=== PATIENT | male | born 1975 | race Caucasian/White ===

== ENCOUNTER 2018-05-22 13:53 | Inpatient (IN) | payer MEDICAID, OTHER ==
[2018-05-22 17:18] LABS: ADD MAN DIFF? NO
[2018-05-22 17:20] LABS: BASOPHILS % 0.3 % (0.0-2.0); EOSINOPHILS # 0.1 10^3/ul (0.0-0.5); EOSINOPHILS % 0.9 % (0.0-7.0); HEMATOCRIT 33.7 % (42.0-52.0); HEMOGLOBIN 11.1 g/dl (14.0-18.0); LYMPHOCYTES # 1.9 10^3/ul (0.8-2.9); LYMPHOCYTES % 14.8 % (15.0-51.0); MEAN CORPUSCULAR HEMOGLOBIN 29.7 pg (29.0-33.0); MEAN CORPUSCULAR HGB CONC 32.9 g/dl (32.0-37.0); MEAN CORPUSCULAR VOLUME 90.1 fl (82.0-101.0); MEAN PLATELET VOLUME 9.8 fl (7.4-10.4); MONOCYTE # 1.4 10^3/ul (0.3-0.9); MONOCYTES % 10.6 % (0.0-11.0); NEUTROPHIL # 9.3 10^3/ul (1.6-7.5); NEUTROPHILS % 72.9 % (39.0-77.0); PLATELET COUNT 324 10^3/UL (140-415); RED BLOOD COUNT 3.74 10^6/ul (4.70-6.10); RED CELL DISTRIBUTION WIDTH 11.8 % (11.5-14.5)
[2018-05-22 17:20] LABS: WHITE BLOOD COUNT 12.8 10^3/ul (4.8-10.8)
[2018-05-22] MEDS: ACETAMINOPHEN 325 MG TAB PO (17:23)
[2018-05-22] MEDS: ONDANSETRON 4 MG INJ IV (17:23)
[2018-05-22] MEDS: morphine 4 MG/ML VIAL IV (17:24)
[2018-05-22 17:32] LABS: ADD UMIC YES; UR ASCORBIC ACID NEGATIVE (NEGATIVE); UR BACTERIA FEW /HPF (NONE SEEN); UR BILIRUBIN (Dip) NEGATIVE (NEGATIVE); UR BLOOD (Dip) 1+ mg/dL (NEGATIVE); UR CLARITY SLIGHTLY CLOUDY (CLEAR); UR COLOR YELLOW (YELLOW); UR GLUCOSE (Dip) NEGATIVE (NEGATIVE); UR KETONES (Dip) TRACE mg/dL (NEGATIVE); UR LEUKOCYTE ESTERASE (Dip) NEGATIVE Leu/ul (NEGATIVE); UR MUCUS FEW /HPF (NONE SEEN); UR NITRITE (Dip) NEGATIVE (NEGATIVE); UR RBC 3 /HPF (0-5); UR SPECIFIC GRAVITY (Dip) 1.024 (1.003-1.030); UR TOTAL PROTEIN (Dip) 3+ mg/dl (NEGATIVE); UR UROBILINOGEN (Dip) NEGATIVE (NEGATIVE); UR WBC 17 /HPF (0-5)
[2018-05-22] MEDS: PIPER-TAZO 3.375 GM IV (PMX) 100 ML IVPB (17:37)
[2018-05-22] MEDS: SODIUM CHLORIDE 0.9% 1L BAG IV* (17:38)
[2018-05-22 17:40] LABS: INR 1.06; PROTIME 13.9 Sec (11.9-14.9); PT RATIO 1.1
[2018-05-22 17:41] LABS: PARTIAL THROMBOPLASTIN TIME 34.7 Sec (23.0-35.0)
[2018-05-22 17:43] LABS: ANION GAP 9 (5-13); BLOOD UREA NITROGEN 34 mg/dl (7-20); CALCIUM 9.5 mg/dl (8.4-10.2); CARBON DIOXIDE 27 mmol/L (21-31); CHLORIDE 101 mmol/L (97-110); CREATININE 1.49 mg/dl (0.61-1.24); Estimated GFR 51 mL/min (>60); GLUCOSE 149 mg/dl (70-220); POTASSIUM 4.9 mmol/L (3.5-5.1); SODIUM 137 mmol/L (135-144)
[2018-05-22 17:54] LABS: TROPONIN-I < 0.012 ng/ml (0.000-0.120)
[2018-05-22] MEDS: VANCOMYCIN 1 GM (PMX) 250 ML IVPB (18:14)
[2018-05-22] MEDS ORDERED: ONDANSETRON 4 MG INJ IV (19:00)
[2018-05-22] MEDS ORDERED: MAGNESIUM HYDROXIDE 30ML CUP PO (19:00)
[2018-05-22] MEDS ORDERED: NACL 0.9% 3 ML SYG IV (19:00)
[2018-05-22] MEDS ORDERED: VANCOMYCIN IV PER PHARMACY XX (19:00)
[2018-05-22] MEDS ORDERED: LORAZEPAM 2 MG INJ IV (19:00)
[2018-05-22] MEDS ORDERED: NA PHOSPHATE/BIPHOS 133 ML ENEMA PR (19:00)
[2018-05-22] MEDS ORDERED: DOCUSATE SODIUM 100 MG CAP PO (19:00)
[2018-05-22] MEDS ORDERED: NITROGLYCERIN (SL) 0.4 MG TAB SL (19:00)
[2018-05-22] MEDS ORDERED: ACETAMINOPHEN 325 MG TAB PO (19:00)
[2018-05-22 19:18] LABS: ETHANOL < 10.0 mg/dl
[2018-05-22 19:43] LABS: FREE T4 (FREE THYROXINE) 1.06 ng/dl (0.64-1.79)
[2018-05-22] MEDS ORDERED: DEXTROSE 50% 50 ML SYRINGE IV ×2 (20:30)
[2018-05-22] MEDS ORDERED: GLUCOSE GEL 15 GRAM TUBE BUCCAL (20:30)
[2018-05-22] MEDS ORDERED: GLUCOSE GEL 15 GRAM TUBE PO ×2 (20:30)
[2018-05-22] MEDS ORDERED: GLUCAGON 1 MG INJ IM (20:30)
[2018-05-22] MEDS ORDERED: INSULIN ASPART [NOVOLOG] 3 ML PEN SC (21:00)
[2018-05-22] MEDS: SOD CHLORIDE 0.9% 1,000 ML IV (21:27)
[2018-05-22] MEDS ORDERED: HEPARIN 5,000 UNIT/0.5 ML VIAL (21:52)
[2018-05-22] MEDS: HEPARIN 5,000 UNIT/1 ML VIAL SC (22:19)
[2018-05-22 23:49] LABS: LACTIC ACID 1.2 mmol/L (0.5-2.0)
[2018-05-22 23:53] LABS: INR 1.18; PROTIME 15.2 Sec (11.9-14.9); PT RATIO 1.2
[2018-05-22 23:54] LABS: PARTIAL THROMBOPLASTIN TIME 39.9 Sec (23.0-35.0)
[2018-05-23] MEDS: PIPER-TAZO 3.375 GM IV (PMX) 100 ML IVPB ×4 (00:03→17:02)
[2018-05-23 01:15] LABS: ADD UMIC YES; UR AMORPHOUS CRYSTAL FEW /HPF (NONE SEEN); UR ASCORBIC ACID NEGATIVE (NEGATIVE); UR BACTERIA FEW /HPF (NONE SEEN); UR BILIRUBIN (Dip) NEGATIVE (NEGATIVE); UR BLOOD (Dip) NEGATIVE (NEGATIVE); UR CLARITY SLIGHTLY CLOUDY (CLEAR); UR COLOR YELLOW (YELLOW); UR GLUCOSE (Dip) NEGATIVE (NEGATIVE); UR KETONES (Dip) NEGATIVE (NEGATIVE); UR LEUKOCYTE ESTERASE (Dip) NEGATIVE Leu/ul (NEGATIVE); UR NITRITE (Dip) NEGATIVE (NEGATIVE); UR RBC 1 /HPF (0-5); UR SPECIFIC GRAVITY (Dip) 1.015 (1.003-1.030); UR TOTAL PROTEIN (Dip) 2+ mg/dl (NEGATIVE); UR UROBILINOGEN (Dip) NEGATIVE (NEGATIVE); UR WBC 11 /HPF (0-5)
[2018-05-23 03:07] LABS: LACTIC ACID 0.8 mmol/L (0.5-2.0)
[2018-05-23] MEDS: PANTOPRAZOLE (EC) 40 MG TAB PO (05:27)
[2018-05-23] MEDS: morphine 2 MG INJ IV ×4 (05:27→20:59)
[2018-05-23] MEDS: VANCOMYCIN 1 GM 250 ML IVPB ×2 (06:21→17:41)
[2018-05-23 06:58] LABS: ADD MAN DIFF? NO
[2018-05-23] MEDS ORDERED: PENDING SANTYL ORDER FOR WOUND CARE XX (07:00)
[2018-05-23 07:03] LABS: BASOPHILS % 0.3 % (0.0-2.0); EOSINOPHILS # 0.2 10^3/ul (0.0-0.5); EOSINOPHILS % 1.8 % (0.0-7.0); HEMATOCRIT 28.4 % (42.0-52.0); HEMOGLOBIN 9.1 g/dl (14.0-18.0); LYMPHOCYTES # 1.8 10^3/ul (0.8-2.9); LYMPHOCYTES % 19.4 % (15.0-51.0); MEAN CORPUSCULAR HEMOGLOBIN 29.4 pg (29.0-33.0); MEAN CORPUSCULAR VOLUME 91.9 fl (82.0-101.0); MEAN PLATELET VOLUME 9.5 fl (7.4-10.4); MONOCYTES % 11.5 % (0.0-11.0); NEUTROPHILS % 66.4 % (39.0-77.0); PLATELET COUNT 258 10^3/UL (140-415); RED BLOOD COUNT 3.09 10^6/ul (4.70-6.10); RED CELL DISTRIBUTION WIDTH 11.9 % (11.5-14.5)
[2018-05-23 07:22] LABS: HEMOGLOBIN A1C 7.1 % (0-5.9)
[2018-05-23 07:27] LABS: ANION GAP 7 (5-13); BLOOD UREA NITROGEN 28 mg/dl (7-20); CALCIUM 8.3 mg/dl (8.4-10.2); CARBON DIOXIDE 27 mmol/L (21-31); CHLORIDE 106 mmol/L (97-110); CREATININE 1.22 mg/dl (0.61-1.24); Estimated GFR > 60 mL/min (>60); GLUCOSE 192 mg/dl (70-220); MAGNESIUM 1.7 mg/dl (1.7-2.5); PHOSPHORUS 4.4 mg/dl (2.5-4.9); POTASSIUM 4.8 mmol/L (3.5-5.1); SODIUM 140 mmol/L (135-144)
[2018-05-23 07:28] LABS: CHOL/HDL RATIO 4.3 RATIO; HDL CHOLESTEROL 30 mg/dl (27-67); LDL CHOLESTEROL,CALCULATED 71 mg/dl; TRIGLYCERIDES 138 mg/dl (0-149)
[2018-05-23 07:28] LABS: CHOLESTEROL 129 mg/dl (100-200)
[2018-05-23] MEDS: SOD CHLORIDE 0.9% 1,000 ML IV ×2 (07:38→10:57)
[2018-05-23 07:45] LABS: LACTIC ACID 0.9 mmol/L (0.5-2.0)
[2018-05-23] MEDS ORDERED: HEPARIN 5,000 UNIT/0.5 ML VIAL ×2 (07:57→20:06)
[2018-05-23] MEDS: INSULIN ASPART [NOVOLOG] 3 ML PEN SC ×4 (08:04→21:00)
[2018-05-23] MEDS: HEPARIN 5,000 UNIT/1 ML VIAL SC ×2 (08:05→21:01)
[2018-05-23 11:29] LABS: LACTIC ACID 0.8 mmol/L (0.5-2.0)
[2018-05-23] MEDS: SODIUM HYPOCHLORITE (1/40) 1 APPLIC BTL IRR (12:13)
[2018-05-23 14:49] LABS: LACTIC ACID 0.8 mmol/L (0.5-2.0)
[2018-05-23] MEDS: ACETAMINOPHEN 325 MG TAB PO (17:12)
[2018-05-24] MEDS: SOD CHLORIDE 0.9% 1,000 ML IV ×3 (01:09→14:46)
[2018-05-24] MEDS: morphine 2 MG INJ IV ×2 (02:16→05:31)
[2018-05-24] MEDS: ACETAMINOPHEN 325 MG TAB PO ×3 (03:25→20:54)
[2018-05-24 05:08] LABS: ADD MAN DIFF? NO
[2018-05-24 05:24] LABS: BASOPHILS % 0.3 % (0.0-2.0); EOSINOPHILS # 0.2 10^3/ul (0.0-0.5); EOSINOPHILS % 2.1 % (0.0-7.0); HEMATOCRIT 28.1 % (42.0-52.0); LYMPHOCYTES # 1.9 10^3/ul (0.8-2.9); LYMPHOCYTES % 21.4 % (15.0-51.0); MEAN CORPUSCULAR HEMOGLOBIN 29.2 pg (29.0-33.0); MEAN CORPUSCULAR VOLUME 91.2 fl (82.0-101.0); MEAN PLATELET VOLUME 9.7 fl (7.4-10.4); MONOCYTES % 11.2 % (0.0-11.0); NEUTROPHIL # 5.8 10^3/ul (1.6-7.5); NEUTROPHILS % 64.3 % (39.0-77.0); PLATELET COUNT 272 10^3/UL (140-415); RED BLOOD COUNT 3.08 10^6/ul (4.70-6.10); RED CELL DISTRIBUTION WIDTH 11.8 % (11.5-14.5)
[2018-05-24 05:24] LABS: WHITE BLOOD COUNT 9.1 10^3/ul (4.8-10.8)
[2018-05-24] MEDS: PANTOPRAZOLE (EC) 40 MG TAB PO (05:26)
[2018-05-24] MEDS: PIPER-TAZO 3.375 GM IV (PMX) 100 ML IVPB ×4 (05:26→17:23)
[2018-05-24 06:23] LABS: ANION GAP 9 (5-13); BLOOD UREA NITROGEN 18 mg/dl (7-20); CALCIUM 8.2 mg/dl (8.4-10.2); CARBON DIOXIDE 27 mmol/L (21-31); CHLORIDE 107 mmol/L (97-110); CREATININE 0.88 mg/dl (0.61-1.24); Estimated GFR > 60 mL/min (>60); GLUCOSE 149 mg/dl (70-220); POTASSIUM 4.8 mmol/L (3.5-5.1); SODIUM 143 mmol/L (135-144)
[2018-05-24 06:31] LABS: VANCOMYCIN,TROUGH 8.7 ug/ml (10.0-20.0)
[2018-05-24] MEDS: VANCOMYCIN 1 GM 250 ML IVPB (06:50)
[2018-05-24] MEDS ORDERED: HEPARIN 5,000 UNIT/0.5 ML VIAL ×2 (07:26→20:10)
[2018-05-24] MEDS: INSULIN ASPART [NOVOLOG] 3 ML PEN SC ×4 (07:59→21:00)
[2018-05-24] MEDS: HEPARIN 5,000 UNIT/1 ML VIAL SC ×2 (08:08→20:49)
[2018-05-24] MEDS: SODIUM HYPOCHLORITE (1/40) 1 APPLIC BTL IRR (08:09)
[2018-05-24] MEDS ORDERED: SODIUM HYPOCHLORITE (1/40) 1 APPLIC BTL IRR (09:00)
[2018-05-24] MEDS: VANCOMYCIN 1.5 GM in SOD CHLORIDE 0.9% 250 ML IVPB (18:05)
[2018-05-24] MEDS: INSULIN GLARGINE [LANTus] (100 UNITS/ML) SYG SC (20:48)
[2018-05-25] MEDS: PIPER-TAZO 3.375 GM IV (PMX) 100 ML IVPB ×4 (00:15→17:19)
[2018-05-25] MEDS: ONDANSETRON 4 MG INJ IV (00:22)
[2018-05-25 05:31] LABS: ADD MAN DIFF? NO
[2018-05-25 05:46] LABS: BASOPHILS % 0.5 % (0.0-2.0); EOSINOPHILS # 0.2 10^3/ul (0.0-0.5); HEMATOCRIT 27.7 % (42.0-52.0); HEMOGLOBIN 9.1 g/dl (14.0-18.0); LYMPHOCYTES # 1.9 10^3/ul (0.8-2.9); LYMPHOCYTES % 21.1 % (15.0-51.0); MEAN CORPUSCULAR HEMOGLOBIN 29.4 pg (29.0-33.0); MEAN CORPUSCULAR HGB CONC 32.9 g/dl (32.0-37.0); MEAN CORPUSCULAR VOLUME 89.6 fl (82.0-101.0); MEAN PLATELET VOLUME 9.7 fl (7.4-10.4); MONOCYTE # 0.9 10^3/ul (0.3-0.9); MONOCYTES % 10.4 % (0.0-11.0); NEUTROPHIL # 5.8 10^3/ul (1.6-7.5); NEUTROPHILS % 65.4 % (39.0-77.0); PLATELET COUNT 294 10^3/UL (140-415); RED BLOOD COUNT 3.09 10^6/ul (4.70-6.10); RED CELL DISTRIBUTION WIDTH 11.6 % (11.5-14.5)
[2018-05-25 05:46] LABS: WHITE BLOOD COUNT 8.8 10^3/ul (4.8-10.8)
[2018-05-25] MEDS: morphine 2 MG INJ IV ×2 (05:47→21:15)
[2018-05-25] MEDS: PANTOPRAZOLE (EC) 40 MG TAB PO (05:47)
[2018-05-25] MEDS: SOD CHLORIDE 0.9% 1,000 ML IV ×2 (05:48→16:12)
[2018-05-25 06:05] LABS: ANION GAP 9 (5-13); BLOOD UREA NITROGEN 10 mg/dl (7-20); CALCIUM 8.5 mg/dl (8.4-10.2); CARBON DIOXIDE 29 mmol/L (21-31); CHLORIDE 106 mmol/L (97-110); CREATININE 0.81 mg/dl (0.61-1.24); Estimated GFR > 60 mL/min (>60); GLUCOSE 122 mg/dl (70-220); POTASSIUM 4.2 mmol/L (3.5-5.1); SODIUM 144 mmol/L (135-144)
[2018-05-25] MEDS: VANCOMYCIN 1.5 GM in SOD CHLORIDE 0.9% 250 ML IVPB ×2 (06:28→17:53)
[2018-05-25 06:32] LABS: MAGNESIUM 1.6 mg/dl (1.7-2.5)
[2018-05-25 06:32] LABS: PHOSPHORUS 3.2 mg/dl (2.5-4.9)
[2018-05-25] MEDS ORDERED: HEPARIN 5,000 UNIT/0.5 ML VIAL ×2 (07:26→20:00)
[2018-05-25] MEDS: INSULIN ASPART [NOVOLOG] 3 ML PEN SC ×4 (07:57→20:03)
[2018-05-25] MEDS: HEPARIN 5,000 UNIT/1 ML VIAL SC ×2 (08:12→20:02)
[2018-05-25] MEDS: SODIUM HYPOCHLORITE (1/40) 1 APPLIC BTL IRR (08:13)
[2018-05-25] MEDS: ACETAMINOPHEN 325 MG TAB PO ×2 (12:15→22:44)
[2018-05-25] MEDS: MAGNESIUM SULFATE 2 GM/50 ML 50 ML IVPB (12:22)
[2018-05-25] MEDS: HYDROCODONE/APAP (5/325) TAB PO (19:52)
[2018-05-25] MEDS: INSULIN GLARGINE [LANTus] (100 UNITS/ML) SYG SC (20:01)
[2018-05-26] MEDS: PIPER-TAZO 3.375 GM IV (PMX) 100 ML IVPB ×2 (00:33→05:26)
[2018-05-26] MEDS: SOD CHLORIDE 0.9% 1,000 ML IV ×4 (02:37→22:34)
[2018-05-26] MEDS: PANTOPRAZOLE (EC) 40 MG TAB PO (05:27)
[2018-05-26] MEDS: ACETAMINOPHEN 325 MG TAB PO (05:35)
[2018-05-26 05:44] LABS: ADD MAN DIFF? NO
[2018-05-26 06:37] LABS: VANCOMYCIN,TROUGH 13.5 ug/ml (10.0-20.0)
[2018-05-26 06:42] LABS: ANION GAP 7 (5-13); BLOOD UREA NITROGEN 14 mg/dl (7-20); CALCIUM 8.7 mg/dl (8.4-10.2); CARBON DIOXIDE 29 mmol/L (21-31); CHLORIDE 105 mmol/L (97-110); CREATININE 1.04 mg/dl (0.61-1.24); Estimated GFR > 60 mL/min (>60); GLUCOSE 136 mg/dl (70-220); POTASSIUM 4.2 mmol/L (3.5-5.1); SODIUM 141 mmol/L (135-144)
[2018-05-26] MEDS: VANCOMYCIN 1.5 GM in SOD CHLORIDE 0.9% 250 ML IVPB ×2 (06:57→18:03)
[2018-05-26 07:57] LABS: WHITE BLOOD COUNT 10.5 10^3/ul (4.8-10.8)
[2018-05-26 07:57] LABS: BASOPHILS % 0.4 % (0.0-2.0); EOSINOPHILS # 0.2 10^3/ul (0.0-0.5); EOSINOPHILS % 1.8 % (0.0-7.0); HEMATOCRIT 26.7 % (42.0-52.0); HEMOGLOBIN 8.7 g/dl (14.0-18.0); LYMPHOCYTES # 1.6 10^3/ul (0.8-2.9); LYMPHOCYTES % 15.1 % (15.0-51.0); MEAN CORPUSCULAR HEMOGLOBIN 29.6 pg (29.0-33.0); MEAN CORPUSCULAR HGB CONC 32.6 g/dl (32.0-37.0); MEAN CORPUSCULAR VOLUME 90.8 fl (82.0-101.0); MEAN PLATELET VOLUME 9.8 fl (7.4-10.4); MONOCYTE # 1.2 10^3/ul (0.3-0.9); MONOCYTES % 11.5 % (0.0-11.0); NEUTROPHIL # 7.4 10^3/ul (1.6-7.5); NEUTROPHILS % 70.6 % (39.0-77.0); PLATELET COUNT 287 10^3/UL (140-415); RED BLOOD COUNT 2.94 10^6/ul (4.70-6.10); RED CELL DISTRIBUTION WIDTH 11.6 % (11.5-14.5)
[2018-05-26] MEDS: INSULIN ASPART [NOVOLOG] 3 ML PEN SC ×4 (08:00→20:24)
[2018-05-26] MEDS ORDERED: HEPARIN 5,000 UNIT/0.5 ML VIAL ×2 (08:19→19:46)
[2018-05-26] MEDS: LIDOCAINE 1% (MPF) 5 ML VIAL SC (08:23)
[2018-05-26] MEDS: HEPARIN 5,000 UNIT/1 ML VIAL SC ×2 (08:56→20:18)
[2018-05-26] MEDS: SODIUM HYPOCHLORITE (1/40) 1 APPLIC BTL IRR (08:56)
[2018-05-26] MEDS: HYDROCODONE/APAP (5/325) TAB PO (15:11)
[2018-05-26] MEDS: ALBUTEROL/IPRATROPIUM (NEB) 3 ML AMP HHN (18:24)
[2018-05-26] MEDS: INSULIN GLARGINE [LANTus] (100 UNITS/ML) SYG SC (20:17)
[2018-05-27] MEDS: HYDROCODONE/APAP (5/325) TAB PO ×4 (01:47→22:05)
[2018-05-27 05:23] LABS: ADD MAN DIFF? NO
[2018-05-27 05:26] LABS: BASOPHILS % 0.4 % (0.0-2.0); EOSINOPHILS # 0.2 10^3/ul (0.0-0.5); EOSINOPHILS % 1.5 % (0.0-7.0); HEMATOCRIT 26.9 % (42.0-52.0); HEMOGLOBIN 8.6 g/dl (14.0-18.0); LYMPHOCYTES # 1.7 10^3/ul (0.8-2.9); MEAN CORPUSCULAR HEMOGLOBIN 29.3 pg (29.0-33.0); MEAN CORPUSCULAR VOLUME 91.5 fl (82.0-101.0); MEAN PLATELET VOLUME 9.8 fl (7.4-10.4); MONOCYTE # 1.1 10^3/ul (0.3-0.9); NEUTROPHIL # 7.7 10^3/ul (1.6-7.5); NEUTROPHILS % 71.5 % (39.0-77.0); PLATELET COUNT 306 10^3/UL (140-415); RED BLOOD COUNT 2.94 10^6/ul (4.70-6.10); RED CELL DISTRIBUTION WIDTH 11.8 % (11.5-14.5)
[2018-05-27 05:26] LABS: WHITE BLOOD COUNT 10.8 10^3/ul (4.8-10.8)
[2018-05-27] MEDS: VANCOMYCIN 1.5 GM in SOD CHLORIDE 0.9% 250 ML IVPB ×2 (05:52→17:31)
[2018-05-27] MEDS: PANTOPRAZOLE (EC) 40 MG TAB PO (05:52)
[2018-05-27 05:53] LABS: ANION GAP 8 (5-13); BLOOD UREA NITROGEN 15 mg/dl (7-20); CALCIUM 8.3 mg/dl (8.4-10.2); CARBON DIOXIDE 29 mmol/L (21-31); CHLORIDE 107 mmol/L (97-110); CREATININE 1.04 mg/dl (0.61-1.24); Estimated GFR > 60 mL/min (>60); GLUCOSE 130 mg/dl (70-220); POTASSIUM 4.1 mmol/L (3.5-5.1); SODIUM 144 mmol/L (135-144)
[2018-05-27] MEDS ORDERED: HEPARIN 5,000 UNIT/0.5 ML VIAL ×2 (07:55→19:41)
[2018-05-27] MEDS: INSULIN ASPART [NOVOLOG] 3 ML PEN SC ×4 (08:00→21:00)
[2018-05-27] MEDS: SOD CHLORIDE 0.9% 1,000 ML IV ×2 (08:13→17:59)
[2018-05-27] MEDS: HEPARIN 5,000 UNIT/1 ML VIAL SC ×2 (08:20→20:12)
[2018-05-27] MEDS: SODIUM HYPOCHLORITE (1/40) 1 APPLIC BTL IRR ×2 (08:21→21:34)
[2018-05-27] MEDS: GABAPENTIN 100 MG CAP PO ×2 (13:00→20:11)
[2018-05-27] MEDS: INSULIN GLARGINE [LANTus] (100 UNITS/ML) SYG SC (20:13)
[2018-05-27] MEDS: hydrALAzine 20 MG INJ IV (22:24)
[2018-05-28] MEDS: BENZONATATE 100 MG CAP PO (01:17)
[2018-05-28] MEDS: SOD CHLORIDE 0.9% 1,000 ML IV ×2 (02:42→14:37)
[2018-05-28] MEDS: ONDANSETRON 4 MG INJ IV (04:34)
[2018-05-28 06:03] LABS: ADD MAN DIFF? NO
[2018-05-28 06:06] LABS: BASOPHILS % 0.3 % (0.0-2.0); EOSINOPHILS # 0.1 10^3/ul (0.0-0.5); EOSINOPHILS % 1.1 % (0.0-7.0); HEMATOCRIT 27.4 % (42.0-52.0); HEMOGLOBIN 8.8 g/dl (14.0-18.0); LYMPHOCYTES # 1.7 10^3/ul (0.8-2.9); LYMPHOCYTES % 13.2 % (15.0-51.0); MEAN CORPUSCULAR HEMOGLOBIN 29.6 pg (29.0-33.0); MEAN CORPUSCULAR HGB CONC 32.1 g/dl (32.0-37.0); MEAN CORPUSCULAR VOLUME 92.3 fl (82.0-101.0); MEAN PLATELET VOLUME 9.6 fl (7.4-10.4); MONOCYTE # 1.2 10^3/ul (0.3-0.9); MONOCYTES % 9.7 % (0.0-11.0); NEUTROPHIL # 9.5 10^3/ul (1.6-7.5); NEUTROPHILS % 75.2 % (39.0-77.0); PLATELET COUNT 319 10^3/UL (140-415); RED BLOOD COUNT 2.97 10^6/ul (4.70-6.10); RED CELL DISTRIBUTION WIDTH 11.9 % (11.5-14.5)
[2018-05-28 06:06] LABS: WHITE BLOOD COUNT 12.7 10^3/ul (4.8-10.8)
[2018-05-28] MEDS: VANCOMYCIN 1.5 GM in SOD CHLORIDE 0.9% 250 ML IVPB (06:14)
[2018-05-28] MEDS: PANTOPRAZOLE (EC) 40 MG TAB PO (06:18)
[2018-05-28 06:48] LABS: ANION GAP 10 (5-13); BLOOD UREA NITROGEN 16 mg/dl (7-20); CALCIUM 8.3 mg/dl (8.4-10.2); CARBON DIOXIDE 27 mmol/L (21-31); CHLORIDE 106 mmol/L (97-110); CREATININE 1.37 mg/dl (0.61-1.24); Estimated GFR 56 mL/min (>60); GLUCOSE 130 mg/dl (70-220); SODIUM 143 mmol/L (135-144)
[2018-05-28] MEDS ORDERED: HEPARIN 5,000 UNIT/0.5 ML VIAL (08:05)
[2018-05-28] MEDS: GABAPENTIN 100 MG CAP PO ×2 (08:40→12:43)
[2018-05-28] MEDS: HEPARIN 5,000 UNIT/1 ML VIAL SC (08:41)
[2018-05-28] MEDS: SODIUM HYPOCHLORITE (1/40) 1 APPLIC BTL IRR (08:42)
[2018-05-28] MEDS: INSULIN ASPART [NOVOLOG] 3 ML PEN SC ×3 (08:43→17:44)
[2018-05-28] MEDS ORDERED: CLINDAMYCIN 600 MG/D5W (PMX) 50 ML IVPB (22:00)
== END 2018-05-28 18:24 | disposition home or self-care (01) | DRG 854 ==
LOC: E/R 13:53 → PP2 18:38
PROC: 02HV33Z Insertion of Infusion Device into Superior Vena Cava, Percutaneous Approach (ICD-10-PCS; 2018-05-22)
PROC: 0LBW0ZZ Excision of Left Foot Tendon, Open Approach (ICD-10-PCS; principal; 2018-05-23)
PROC: 0LBW0ZZ Excision of Left Foot Tendon, Open Approach (ICD-10-PCS; 2018-05-27)
DX: A41.9 Sepsis, unspecified organism (principal); L03.116 Cellulitis of left lower limb; L97.428 Non-pressure chronic ulcer of left heel and midfoot with other specified severity; M86.8X7 Other osteomyelitis, ankle and foot; L02.612 Cutaneous abscess of left foot; B95.4 Other streptococcus as the cause of diseases classified elsewhere; E11.621 Type 2 diabetes mellitus with foot ulcer; E11.628 Type 2 diabetes mellitus with other skin complications; E11.69 Type 2 diabetes mellitus with other specified complication; E11.42 Type 2 diabetes mellitus with diabetic polyneuropathy; E78.5 Hyperlipidemia, unspecified; I10 Essential (primary) hypertension; S91.332A Puncture wound without foreign body, left foot, initial encounter; W45.0XXA Nail entering through skin, initial encounter; Z87.891 Personal history of nicotine dependence; Z87.39 Personal history of other diseases of the musculoskeletal system and connective tissue; Z79.84 Long term (current) use of oral hypoglycemic drugs
CPT/HCPCS: 36415; 36569; 71045; 73630-LT; 73718; 76937; 80048; 80061; 80202; 80307; 81001; 82962; 83036; 83605; 83735; 84100; 84439; 84443; 84484; 85025; 85610; 85730; 87040; 87070; 87086; 90686; 93005; 93922; 96374; 96375; 97116; 97161; 97166; 97530; 99291-25

== ENCOUNTER 2018-05-30 13:41 | Emergency (ER) | payer MEDICAID ==
[2018-05-30] MEDS ORDERED: morphine 4 MG/ML VIAL IV (14:09)
[2018-05-30 14:27] LABS: ADD MAN DIFF? NO
[2018-05-30] MEDS: ONDANSETRON 4 MG INJ IV (14:35)
[2018-05-30] MEDS: SOD CHLORIDE 0.9% 1,000 ML IV (14:35)
[2018-05-30 14:42] LABS: WHITE BLOOD COUNT 11.7 10^3/ul (4.8-10.8)
[2018-05-30 14:42] LABS: BASOPHIL # 0.1 10^3/ul (0.0-0.1); BASOPHILS % 0.6 % (0.0-2.0); EOSINOPHILS # 0.1 10^3/ul (0.0-0.5); HEMATOCRIT 28.1 % (42.0-52.0); HEMOGLOBIN 8.9 g/dl (14.0-18.0); LYMPHOCYTES # 1.6 10^3/ul (0.8-2.9); LYMPHOCYTES % 13.5 % (15.0-51.0); MEAN CORPUSCULAR HEMOGLOBIN 28.6 pg (29.0-33.0); MEAN CORPUSCULAR HGB CONC 31.7 g/dl (32.0-37.0); MEAN CORPUSCULAR VOLUME 90.4 fl (82.0-101.0); MEAN PLATELET VOLUME 9.6 fl (7.4-10.4); MONOCYTE # 0.9 10^3/ul (0.3-0.9); MONOCYTES % 7.8 % (0.0-11.0); NEUTROPHILS % 76.8 % (39.0-77.0); PLATELET COUNT 395 10^3/UL (140-415); RED BLOOD COUNT 3.11 10^6/ul (4.70-6.10); RED CELL DISTRIBUTION WIDTH 12.1 % (11.5-14.5)
[2018-05-30 14:50] LABS: INR 1.12; PROTIME 14.6 Sec (11.9-14.9); PT RATIO 1.1
[2018-05-30 14:51] LABS: PARTIAL THROMBOPLASTIN TIME 36.4 Sec (23.0-35.0)
[2018-05-30] MEDS: BENZONATATE 100 MG CAP PO (14:51)
[2018-05-30 14:56] LABS: ALANINE AMINOTRANSFERASE 11 IU/L (13-69); ALBUMIN 3.3 g/dl (3.3-4.9); ALKALINE PHOSPHATASE 88 IU/L (42-121); AMYLASE 53 U/L (11-123); ANION GAP 6 (5-13); ASPARTATE AMINO TRANSFERASE 25 IU/L (15-46); BILIRUBIN,INDIRECT 0.1 mg/dl (0-1.1); BILIRUBIN,TOTAL 0.1 mg/dl (0.2-1.3); BLOOD UREA NITROGEN 19 mg/dl (7-20); CALCIUM 8.9 mg/dl (8.4-10.2); CARBON DIOXIDE 32 mmol/L (21-31); CHLORIDE 104 mmol/L (97-110); Estimated GFR 36 mL/min (>60); GLUCOSE 151 mg/dl (70-220); LIPASE 69 U/L (23-300); POTASSIUM 4.2 mmol/L (3.5-5.1); SODIUM 142 mmol/L (135-144); TOTAL PROTEIN 6.6 g/dl (6.1-8.1)
[2018-05-30 15:04] LABS: TROPONIN-I < 0.012 ng/ml (0.000-0.120)
[2018-05-30] MEDS: VANCOMYCIN 1 GM (PMX) 250 ML IVPB (17:05)
[2018-05-30] MEDS: DIPHENOXYLATE/ATROPINE TAB PO (19:08)
== END 2018-05-30 20:22 | disposition home or self-care (01) ==
LOC: E/R 20:22
DX: R19.7 Diarrhea, unspecified (principal); E86.0 Dehydration; E11.9 Type 2 diabetes mellitus without complications; I10 Essential (primary) hypertension; R10.9 Unspecified abdominal pain
CPT/HCPCS: 71045; 74176; 80053; 82150; 83690; 84484; 85025; 85610; 85730; 87040; 87075; 87086; 93005; 96374; 96375; 99285-25

== ENCOUNTER 2018-06-02 04:22 | Emergency (ER) | payer MEDICAID | END 2018-06-02 05:19 | disposition home or self-care (01) | LOC: FTE 04:22 | DX: M25.511 Pain in right shoulder (principal); I10 Essential (primary) hypertension; E11.9 Type 2 diabetes mellitus without complications; Z79.84 Long term (current) use of oral hypoglycemic drugs | CPT/HCPCS: 73030; 73030-RT; 99283-25 ==

== ENCOUNTER 2018-06-05 14:17 | Inpatient (IN) | payer MEDICAID ==
[2018-06-05 15:21] LABS: ABNORMAL IP MESSAGE 1; HEMATOCRIT 22.1 % (42.0-52.0); HEMOGLOBIN 7.3 g/dl (14.0-18.0); MEAN CORPUSCULAR HEMOGLOBIN 29.2 pg (29.0-33.0); MEAN CORPUSCULAR VOLUME 88.4 fl (82.0-101.0); MEAN PLATELET VOLUME 9.9 fl (7.4-10.4); PLATELET COUNT 416 10^3/UL (140-415); POSITIVE DIFF @See below; RED CELL DISTRIBUTION WIDTH 12.6 % (11.5-14.5)
[2018-06-05] MEDS: CEFEPIME 2GM/50 ML (PMX) 50 ML IVPB (15:22)
[2018-06-05 15:24] LABS: ADD MAN DIFF? YES; PATH REVIEW? YES
[2018-06-05] MEDS: SODIUM CHLORIDE 0.9% 1L BAG IV* (15:24)
[2018-06-05 15:38] LABS: ANION GAP 10 (5-13); BLOOD UREA NITROGEN 28 mg/dl (7-20); CALCIUM 8.4 mg/dl (8.4-10.2); CARBON DIOXIDE 28 mmol/L (21-31); CHLORIDE 96 mmol/L (97-110); Estimated GFR 31 mL/min (>60); GLUCOSE 183 mg/dl (70-220); POTASSIUM 4.8 mmol/L (3.5-5.1); SODIUM 134 mmol/L (135-144)
[2018-06-05 15:39] LABS: INR 1.32; PROTIME 16.6 Sec (11.9-14.9); PT RATIO 1.3
[2018-06-05 15:40] LABS: PARTIAL THROMBOPLASTIN TIME 43.7 Sec (23.0-35.0)
[2018-06-05] MEDS: VANCOMYCIN 1 GM (PMX) 250 ML IVPB (15:47)
[2018-06-05 15:49] LABS: TROPONIN-I 0.019 ng/ml (0.000-0.120)
[2018-06-05 15:52] LABS: LACTIC ACID 1.7 mmol/L (0.5-2.0)
[2018-06-05 15:54] LABS: BAND NEUTROPHILS % (M) 4 % (0-4); EOSINOPHILS % (M) 1 % (0-7); GIANT THROMBO% (M) 1 % (0-0); LYMPHOCYTES #M 1.2 10^3/ul (0.8-2.9); LYMPHOCYTES % (M) 5 % (15-51); MONOCYTE #M 2.7 10^3/ul (0.3-0.9); MONOCYTES % (M) 11 % (0-11); PLATELET ESTIMATE INCREASED; POLYCHROMASIA 3+ (0-0); SEGMENTED NEUTROPHILS (M) % 79 % (39-77); SMUDGE%M 4 % (0-0)
[2018-06-05] MEDS: ACETAMINOPHEN 325 MG TAB PO (15:55)
[2018-06-05 16:08] LABS: ADD UMIC YES; UR ASCORBIC ACID NEGATIVE (NEGATIVE); UR BILIRUBIN (Dip) NEGATIVE (NEGATIVE); UR BLOOD (Dip) NEGATIVE (NEGATIVE); UR CLARITY CLOUDY (CLEAR); UR COLOR YELLOW (YELLOW); UR GLUCOSE (Dip) NEGATIVE (NEGATIVE); UR KETONES (Dip) NEGATIVE (NEGATIVE); UR LEUKOCYTE ESTERASE (Dip) NEGATIVE Leu/ul (NEGATIVE); UR NITRITE (Dip) NEGATIVE (NEGATIVE); UR RBC 3 /HPF (0-5); UR RBC CAST FEW /HPF (NONE SEEN); UR SPECIFIC GRAVITY (Dip) 1.017 (1.003-1.030); UR TOTAL PROTEIN (Dip) 3+ mg/dl (NEGATIVE); UR UROBILINOGEN (Dip) NEGATIVE (NEGATIVE); UR WBC 4 /HPF (0-5)
[2018-06-05] MEDS ORDERED: ACETAMINOPHEN 325 MG TAB PO (16:30)
[2018-06-05] MEDS: ONDANSETRON 4 MG INJ IV ×2 (17:19→19:31)
[2018-06-05] MEDS ORDERED: ZOLPIDEM 5 MG TAB PO (18:00)
[2018-06-05] MEDS ORDERED: DOCUSATE SODIUM 100 MG CAP PO (18:00)
[2018-06-05] MEDS: INSULIN ASPART [NOVOLOG] 3 ML PEN SC ×3 (18:00→21:44)
[2018-06-05] MEDS ORDERED: NACL 0.9% 3 ML SYG IV (18:00)
[2018-06-05] MEDS ORDERED: GLUCOSE GEL 15 GRAM TUBE PO ×2 (18:30)
[2018-06-05] MEDS ORDERED: GLUCAGON 1 MG INJ IM (18:30)
[2018-06-05] MEDS ORDERED: GLUCOSE GEL 15 GRAM TUBE BUCCAL (18:30)
[2018-06-05] MEDS ORDERED: DEXTROSE 50% 50 ML SYRINGE IV ×2 (18:30)
[2018-06-05 19:02] LABS: LACTIC ACID < 0.5 mmol/L (0.5-2.0)
[2018-06-05] MEDS: VANCOMYCIN IV PER PHARMACY XX (19:18)
[2018-06-05] MEDS: VANCOMYCIN 500MG/NS (PMX) 100 ML IVPB ×2 (19:23→21:13)
[2018-06-05] MEDS: morphine 2 MG INJ IV ×2 (19:25→20:07)
[2018-06-05] MEDS: PIPER-TAZO 3.375 GM IV (PMX) 100 ML IVPB ×2 (19:40→19:58)
[2018-06-05] MEDS: SOD CHLORIDE 0.9% 1,000 ML IV (21:16)
[2018-06-05] MEDS: INSULIN GLARGINE [LANTus] (100 UNITS/ML) SYG SC (21:42)
[2018-06-05] MEDS: HYDROCODONE/APAP (5/325) TAB PO (21:44)
[2018-06-05 23:03] LABS: LACTIC ACID 0.9 mmol/L (0.5-2.0)
[2018-06-05 23:35] LABS: C-REACTIVE PROTEIN 37.4 mg/dl (0.0-0.9)
[2018-06-05 23:56] LABS: ERYTHROCYTE SEDIMENTATION RATE 150 mm/Hr (0-15)
[2018-06-06] MEDS: PIPER-TAZO 3.375 GM IV (PMX) 100 ML IVPB ×4 (00:09→17:38)
[2018-06-06] MEDS: ACCU-CHEK XX (02:00)
[2018-06-06] MEDS: SOD CHLORIDE 0.9% 1,000 ML IV ×3 (03:38→23:38)
[2018-06-06] MEDS: ACETAMINOPHEN 325 MG TAB PO ×3 (04:10→16:42)
[2018-06-06] MEDS: morphine 2 MG INJ IV ×2 (04:15→08:18)
[2018-06-06 06:14] LABS: ABNORMAL IP MESSAGE 1; HEMATOCRIT 19.6 % (42.0-52.0); MEAN CORPUSCULAR HEMOGLOBIN 29.2 pg (29.0-33.0); MEAN CORPUSCULAR HGB CONC 32.7 g/dl (32.0-37.0); MEAN CORPUSCULAR VOLUME 89.5 fl (82.0-101.0); MEAN PLATELET VOLUME 10.5 fl (7.4-10.4); PLATELET COUNT 390 10^3/UL (140-415); POSITIVE DIFF @See below; RED BLOOD COUNT 2.19 10^6/ul (4.70-6.10); RED CELL DISTRIBUTION WIDTH 13.2 % (11.5-14.5)
[2018-06-06 06:14] LABS: WHITE BLOOD COUNT 20.4 10^3/ul (4.8-10.8)
[2018-06-06 06:17] LABS: ADD MAN DIFF? YES
[2018-06-06 06:19] LABS: HEMOGLOBIN 6.4 g/dl (14.0-18.0)
[2018-06-06 07:20] LABS: ANION GAP 9 (5-13); BLOOD UREA NITROGEN 29 mg/dl (7-20); CALCIUM 7.7 mg/dl (8.4-10.2); CARBON DIOXIDE 25 mmol/L (21-31); CHLORIDE 101 mmol/L (97-110); CREATININE 2.27 mg/dl (0.61-1.24); Estimated GFR 31 mL/min (>60); GLUCOSE 133 mg/dl (70-220); MAGNESIUM 1.7 mg/dl (1.7-2.5); PHOSPHORUS 3.7 mg/dl (2.5-4.9); POTASSIUM 4.8 mmol/L (3.5-5.1); SODIUM 135 mmol/L (135-144)
[2018-06-06 07:26] LABS: ANISOCYTOSIS 1+ (0-0); BAND NEUTROPHILS % (M) 10 % (0-4); BASOPHIL #M 0.2 10^3/ul (0.0-0.0); BASOPHILS % (M) 1 % (0-2); BURR CELLS 1+ (0-0); LYMPHOCYTES % (M) 5 % (15-51); MONOCYTE #M 1.4 10^3/ul (0.3-0.9); MONOCYTES % (M) 7 % (0-11); PLATELET ESTIMATE NORMAL; POIKILOCYTOSIS 1+ (0-0); POLYCHROMASIA 1+ (0-0); SEG NEUT #M 16.1 10^3/ul (1.6-7.5); SEGMENTED NEUTROPHILS (M) % 77 % (39-77); SMUDGE%M 21 % (0-0); TARGET CELLS 1+ (0-0)
[2018-06-06 07:35] LABS: ABNORMAL IP MESSAGE 1; HEMATOCRIT 20.3 % (42.0-52.0); MEAN CORPUSCULAR HEMOGLOBIN 28.9 pg (29.0-33.0); MEAN CORPUSCULAR VOLUME 90.2 fl (82.0-101.0); MEAN PLATELET VOLUME 9.7 fl (7.4-10.4); PLATELET COUNT 385 10^3/UL (140-415); POSITIVE DIFF @See below; RED BLOOD COUNT 2.25 10^6/ul (4.70-6.10); RED CELL DISTRIBUTION WIDTH 13.2 % (11.5-14.5)
[2018-06-06 07:35] LABS: WHITE BLOOD COUNT 20.7 10^3/ul (4.8-10.8)
[2018-06-06 07:51] LABS: ADD MAN DIFF? YES; HEMOGLOBIN 6.5 g/dl (14.0-18.0)
[2018-06-06] MEDS: INSULIN ASPART [NOVOLOG] 3 ML PEN SC ×7 (08:00→21:00)
[2018-06-06 09:47] LABS: ANISOCYTOSIS 2+ (0-0); BAND NEUTROPHILS #M 0.4 10^3/ul (0.0-0.6); BAND NEUTROPHILS % (M) 2 % (0-4); LYMPHOCYTES #M 1.2 10^3/ul (0.8-2.9); LYMPHOCYTES % (M) 6 % (15-51); MONOCYTE #M 1.2 10^3/ul (0.3-0.9); MONOCYTES % (M) 6 % (0-11); PLATELET ESTIMATE NORMAL; POIKILOCYTOSIS 1+ (0-0); POLYCHROMASIA 3+ (0-0); ROULEAU 1+ (0-0); SEG NEUT #M 17.9 10^3/ul (1.6-7.5); SEGMENTED NEUTROPHILS (M) % 86 % (39-77)
[2018-06-06 10:52] LABS: IMMEDIATE SPIN CROSSMATCH 1 1
[2018-06-06 11:07] LABS: HEMOGLOBIN A1C 7.4 % (0-5.9)
[2018-06-06] MEDS: SODIUM HYPOCHLORITE (1/40) 1 APPLIC BTL IRR (14:33)
[2018-06-06] MEDS: VANCOMYCIN 1.25 GM in SOD CHLORIDE 0.9% 250 ML IVPB (16:39)
[2018-06-06] MEDS: INSULIN GLARGINE [LANTus] (100 UNITS/ML) SYG SC (20:36)
[2018-06-06] MEDS: MEROPENEM 1 GM/50ML(PMX) 50 ML IVPB (21:40)
[2018-06-07] MEDS: morphine 2 MG INJ IV ×5 (01:09→20:32)
[2018-06-07] MEDS: ONDANSETRON 4 MG INJ IV ×2 (01:09→09:25)
[2018-06-07] MEDS: ACETAMINOPHEN 325 MG TAB PO ×2 (01:10→17:52)
[2018-06-07] MEDS: ACCU-CHEK XX (02:00)
[2018-06-07 05:23] LABS: ADD MAN DIFF? NO
[2018-06-07 05:40] LABS: WHITE BLOOD COUNT 15.7 10^3/ul (4.8-10.8)
[2018-06-07 05:40] LABS: BASOPHIL # 0.1 10^3/ul (0.0-0.1); BASOPHILS % 0.3 % (0.0-2.0); EOSINOPHILS # 0.3 10^3/ul (0.0-0.5); EOSINOPHILS % 1.7 % (0.0-7.0); HEMATOCRIT 22.1 % (42.0-52.0); LYMPHOCYTES # 1.4 10^3/ul (0.8-2.9); LYMPHOCYTES % 8.9 % (15.0-51.0); MEAN CORPUSCULAR HEMOGLOBIN 29.4 pg (29.0-33.0); MEAN CORPUSCULAR HGB CONC 31.7 g/dl (32.0-37.0); MEAN CORPUSCULAR VOLUME 92.9 fl (82.0-101.0); MEAN PLATELET VOLUME 10.5 fl (7.4-10.4); MONOCYTE # 1.3 10^3/ul (0.3-0.9); MONOCYTES % 8.2 % (0.0-11.0); NEUTROPHIL # 12.5 10^3/ul (1.6-7.5); NEUTROPHILS % 79.6 % (39.0-77.0); PLATELET COUNT 415 10^3/UL (140-415); RED BLOOD COUNT 2.38 10^6/ul (4.70-6.10); RED CELL DISTRIBUTION WIDTH 13.9 % (11.5-14.5)
[2018-06-07 06:08] LABS: ANION GAP 10 (5-13); BLOOD UREA NITROGEN 34 mg/dl (7-20); CALCIUM 8.1 mg/dl (8.4-10.2); CARBON DIOXIDE 23 mmol/L (21-31); CHLORIDE 103 mmol/L (97-110); CREATININE 2.56 mg/dl (0.61-1.24); Estimated GFR 27 mL/min (>60); GLUCOSE 96 mg/dl (70-220); POTASSIUM 4.4 mmol/L (3.5-5.1); SODIUM 136 mmol/L (135-144)
[2018-06-07 06:17] LABS: URIC ACID 6.7 mg/dl (3.1-7.9)
[2018-06-07] MEDS: INSULIN ASPART [NOVOLOG] 3 ML PEN SC ×7 (08:00→20:35)
[2018-06-07] MEDS: SODIUM HYPOCHLORITE (1/40) 1 APPLIC BTL IRR (09:21)
[2018-06-07] MEDS: MEROPENEM 1 GM/50ML(PMX) 50 ML IVPB ×2 (09:22→20:32)
[2018-06-07] MEDS: SOD CHLORIDE 0.9% 1,000 ML IV ×2 (09:26→17:52)
[2018-06-07] MEDS: INSULIN GLARGINE [LANTus] (100 UNITS/ML) SYG SC (20:00)
[2018-06-08] MEDS: ACCU-CHEK XX (00:12)
[2018-06-08] MEDS: morphine 2 MG INJ IV ×2 (01:54→07:42)
[2018-06-08] MEDS: ACETAMINOPHEN 325 MG TAB PO ×2 (03:03→20:22)
[2018-06-08] MEDS: SOD CHLORIDE 0.9% 1,000 ML IV (04:39)
[2018-06-08 05:11] LABS: ADD MAN DIFF? NO
[2018-06-08 05:22] LABS: BASOPHIL # 0.1 10^3/ul (0.0-0.1); BASOPHILS % 0.8 % (0.0-2.0); EOSINOPHILS # 0.3 10^3/ul (0.0-0.5); EOSINOPHILS % 2.5 % (0.0-7.0); HEMATOCRIT 22.1 % (42.0-52.0); LYMPHOCYTES # 1.6 10^3/ul (0.8-2.9); MEAN CORPUSCULAR HEMOGLOBIN 28.9 pg (29.0-33.0); MEAN CORPUSCULAR HGB CONC 31.7 g/dl (32.0-37.0); MEAN CORPUSCULAR VOLUME 91.3 fl (82.0-101.0); MEAN PLATELET VOLUME 9.9 fl (7.4-10.4); MONOCYTE # 0.9 10^3/ul (0.3-0.9); MONOCYTES % 8.9 % (0.0-11.0); NEUTROPHIL # 7.6 10^3/ul (1.6-7.5); NEUTROPHILS % 72.2 % (39.0-77.0); PLATELET COUNT 441 10^3/UL (140-415); RED BLOOD COUNT 2.42 10^6/ul (4.70-6.10); RED CELL DISTRIBUTION WIDTH 14.4 % (11.5-14.5)
[2018-06-08 05:22] LABS: WHITE BLOOD COUNT 10.6 10^3/ul (4.8-10.8)
[2018-06-08 05:46] LABS: ANION GAP 9 (5-13); BLOOD UREA NITROGEN 31 mg/dl (7-20); CALCIUM 8.4 mg/dl (8.4-10.2); CARBON DIOXIDE 24 mmol/L (21-31); CHLORIDE 106 mmol/L (97-110); CREATININE 2.21 mg/dl (0.61-1.24); Estimated GFR 32 mL/min (>60); GLUCOSE 94 mg/dl (70-220); POTASSIUM 4.5 mmol/L (3.5-5.1); SODIUM 139 mmol/L (135-144)
[2018-06-08] MEDS: INSULIN ASPART [NOVOLOG] 3 ML PEN SC ×7 (07:49→20:24)
[2018-06-08] MEDS: MEROPENEM 1 GM/50ML(PMX) 50 ML IVPB (08:38)
[2018-06-08] MEDS: SODIUM HYPOCHLORITE (1/40) 1 APPLIC BTL IRR (08:38)
[2018-06-08 10:03] LABS: OCCULT BLOOD STOOL NEGATIVE (NEGATIVE)
[2018-06-08 10:32] LABS: ADD UMIC YES; UR ASCORBIC ACID NEGATIVE (NEGATIVE); UR BILIRUBIN (Dip) NEGATIVE (NEGATIVE); UR BLOOD (Dip) NEGATIVE (NEGATIVE); UR CLARITY CLEAR (CLEAR); UR COLOR STRAW (YELLOW); UR GLUCOSE (Dip) NEGATIVE (NEGATIVE); UR KETONES (Dip) TRACE mg/dL (NEGATIVE); UR LEUKOCYTE ESTERASE (Dip) NEGATIVE Leu/ul (NEGATIVE); UR NITRITE (Dip) NEGATIVE (NEGATIVE); UR RBC 0 /HPF (0-5); UR SPECIFIC GRAVITY (Dip) 1.006 (1.003-1.030); UR TOTAL PROTEIN (Dip) 1+ mg/dl (NEGATIVE); UR UROBILINOGEN (Dip) NEGATIVE (NEGATIVE); UR WBC 0 /HPF (0-5)
[2018-06-08 10:40] LABS: CREATININE,URINE RANDOM 33.61 mg/dl (20-370)
[2018-06-08 10:40] LABS: SODIUM,URINE RANDOM 58 mmol/L (30-90)
[2018-06-08] MEDS: DAPTOMYCIN IVPB (16:33)
[2018-06-08] MEDS: SOD CHLORIDE 0.9% IVPB (16:33)
[2018-06-08] MEDS ORDERED: VANCOMYCIN 1.25 GM in SOD CHLORIDE 0.9% 250 ML IVPB (17:00)
[2018-06-08] MEDS: CEFEPIME 1GM/50 ML (PMX) 50 ML IVPB (20:23)
[2018-06-08] MEDS: INSULIN GLARGINE [LANTus] (100 UNITS/ML) SYG SC (20:24)
[2018-06-08] MEDS: hydrALAzine 20 MG INJ IV (20:27)
[2018-06-08] MEDS: HYDROCODONE/APAP (10/325) TAB PO (22:54)
[2018-06-09 06:45] LABS: CREATINE KINASE < 20 IU/L (23-200)
[2018-06-09 06:53] LABS: ANION GAP 9 (5-13); BLOOD UREA NITROGEN 26 mg/dl (7-20); CALCIUM 8.5 mg/dl (8.4-10.2); CARBON DIOXIDE 24 mmol/L (21-31); CHLORIDE 110 mmol/L (97-110); CREATININE 1.75 mg/dl (0.61-1.24); Estimated GFR 42 mL/min (>60); GLUCOSE 112 mg/dl (70-220); MAGNESIUM 2.2 mg/dl (1.7-2.5); PHOSPHORUS 3.4 mg/dl (2.5-4.9); POTASSIUM 4.8 mmol/L (3.5-5.1); SODIUM 143 mmol/L (135-144)
[2018-06-09] MEDS: hydrALAzine 20 MG INJ IV (07:45)
[2018-06-09] MEDS: HYDROCODONE/APAP (10/325) TAB PO ×3 (07:45→21:17)
[2018-06-09] MEDS: INSULIN ASPART [NOVOLOG] 3 ML PEN SC ×7 (07:50→21:00)
[2018-06-09 07:52] LABS: PROTEIN, TOTAL 5.7 g/dL (6.1-8.1)
[2018-06-09] MEDS: SODIUM HYPOCHLORITE (1/40) 1 APPLIC BTL IRR (08:08)
[2018-06-09] MEDS: CEFEPIME 1GM/50 ML (PMX) 50 ML IVPB ×2 (08:08→20:18)
[2018-06-09 08:36] LABS: IRON 17 ug/dl (35-150)
[2018-06-09 08:46] LABS: % IRON SATURATION 8 % SAT (22-52); TOTAL IRON BINDING CAPACITY 217 ug/dl (241-421)
[2018-06-09] MEDS: ACETAMINOPHEN 325 MG TAB PO (10:27)
[2018-06-09 13:12] LABS: CREATININE, RANDOM URINE 36 mg/dL (20-320); MICROALBUMIN 16.4 mg/dL; MICROALBUMIN/CREATININE RATIO 456 (<30)
[2018-06-09] MEDS: SOD CHLORIDE 0.9% IVPB (17:06)
[2018-06-09] MEDS: DAPTOMYCIN IVPB (17:06)
[2018-06-09] MEDS: INSULIN GLARGINE [LANTus] (100 UNITS/ML) SYG SC (20:15)
[2018-06-09 23:07] LABS: ALPHA-1-GLOBULINS 0.5 g/dL (0.2-0.3); ALPHA-2-GLOBULINS 1.3 g/dL (0.5-0.9); BETA 2 GLOBULINS 0.4 g/dL (0.2-0.5); BETA GLOBULINS 0.3 g/dL (0.4-0.6); GAMMA GLOBULINS 1.1 g/dL (0.8-1.7)
[2018-06-10] MEDS: HYDROCODONE/APAP (10/325) TAB PO ×3 (01:44→22:55)
[2018-06-10] MEDS: ACETAMINOPHEN 325 MG TAB PO (06:02)
[2018-06-10 07:20] LABS: ADD MAN DIFF? NO
[2018-06-10 07:23] LABS: WHITE BLOOD COUNT 8.8 10^3/ul (4.8-10.8)
[2018-06-10 07:23] LABS: BASOPHIL # 0.1 10^3/ul (0.0-0.1); BASOPHILS % 0.8 % (0.0-2.0); EOSINOPHILS # 0.2 10^3/ul (0.0-0.5); EOSINOPHILS % 2.3 % (0.0-7.0); HEMATOCRIT 28.2 % (42.0-52.0); HEMOGLOBIN 8.7 g/dl (14.0-18.0); LYMPHOCYTES # 1.9 10^3/ul (0.8-2.9); LYMPHOCYTES % 22.1 % (15.0-51.0); MEAN CORPUSCULAR HEMOGLOBIN 28.9 pg (29.0-33.0); MEAN CORPUSCULAR HGB CONC 30.9 g/dl (32.0-37.0); MEAN CORPUSCULAR VOLUME 93.7 fl (82.0-101.0); MEAN PLATELET VOLUME 9.5 fl (7.4-10.4); MONOCYTES % 11.9 % (0.0-11.0); NEUTROPHIL # 5.4 10^3/ul (1.6-7.5); PLATELET COUNT 544 10^3/UL (140-415); RED BLOOD COUNT 3.01 10^6/ul (4.70-6.10); RED CELL DISTRIBUTION WIDTH 13.9 % (11.5-14.5)
[2018-06-10 07:41] LABS: ANION GAP 8 (5-13); BLOOD UREA NITROGEN 24 mg/dl (7-20); CARBON DIOXIDE 27 mmol/L (21-31); CHLORIDE 104 mmol/L (97-110); CREATININE 1.77 mg/dl (0.61-1.24); Estimated GFR 42 mL/min (>60); GLUCOSE 105 mg/dl (70-220); PHOSPHORUS 3.5 mg/dl (2.5-4.9); POTASSIUM 4.5 mmol/L (3.5-5.1); SODIUM 139 mmol/L (135-144)
[2018-06-10] MEDS: INSULIN ASPART [NOVOLOG] 3 ML PEN SC ×7 (08:00→20:41)
[2018-06-10] MEDS: ONDANSETRON 4 MG INJ IV (08:07)
[2018-06-10] MEDS: CEFEPIME 1GM/50 ML (PMX) 50 ML IVPB ×2 (08:47→20:37)
[2018-06-10] MEDS: SODIUM HYPOCHLORITE (1/40) 1 APPLIC BTL IRR (08:49)
[2018-06-10] MEDS: SOD CHLORIDE 0.9% IVPB (15:52)
[2018-06-10] MEDS: DAPTOMYCIN IVPB (15:52)
[2018-06-10 17:57] LABS: CREATININE, RANDOM URINE 38 mg/dL (20-320); PROTEIN/CREATININE RATIO 1263 mg/g creat (22-128)
[2018-06-10] MEDS: INSULIN GLARGINE [LANTus] (100 UNITS/ML) SYG SC (20:40)
[2018-06-11] MEDS: ONDANSETRON 4 MG INJ IV (04:52)
[2018-06-11] MEDS: METOCLOPRAMIDE 10 MG INJ IV (06:39)
[2018-06-11] MEDS ORDERED: CALCIUM CARBONATE 500 MG CHEW TAB (06:50)
[2018-06-11 07:24] LABS: ANION GAP 6 (5-13); BLOOD UREA NITROGEN 21 mg/dl (7-20); CARBON DIOXIDE 29 mmol/L (21-31); CHLORIDE 106 mmol/L (97-110); CREATININE 1.68 mg/dl (0.61-1.24); Estimated GFR 44 mL/min (>60); GLUCOSE 108 mg/dl (70-220); MAGNESIUM 1.9 mg/dl (1.7-2.5); PHOSPHORUS 3.9 mg/dl (2.5-4.9); POTASSIUM 4.6 mmol/L (3.5-5.1); SODIUM 141 mmol/L (135-144)
[2018-06-11] MEDS: INSULIN ASPART [NOVOLOG] 3 ML PEN SC ×7 (08:00→21:00)
[2018-06-11] MEDS: SODIUM HYPOCHLORITE (1/40) 1 APPLIC BTL IRR (08:16)
[2018-06-11] MEDS: CEFEPIME 1GM/50 ML (PMX) 50 ML IVPB ×2 (08:16→21:55)
[2018-06-11 11:57] LABS: C-REACTIVE PROTEIN 3.9 mg/dl (0.0-0.9)
[2018-06-11 12:40] LABS: ERYTHROCYTE SEDIMENTATION RATE 112 mm/Hr (0-15)
[2018-06-11] MEDS: DAPTOMYCIN 500 MG in SOD CHLORIDE 0.9% 100 ML IVPB (16:24)
[2018-06-11] MEDS: hydrALAzine 20 MG INJ IV (18:36)
[2018-06-11] MEDS: INSULIN GLARGINE [LANTus] (100 UNITS/ML) SYG SC (21:55)
[2018-06-11] MEDS: AMLODIPINE 2.5 MG TAB PO (21:55)
[2018-06-11] MEDS: ACETAMINOPHEN 325 MG TAB PO (21:56)
[2018-06-12] MEDS: ONDANSETRON 4 MG INJ IV (01:25)
[2018-06-12] MEDS: hydrALAzine 20 MG INJ IV (01:25)
[2018-06-12] MEDS: CALCIUM CARBONATE 500 MG CHEW TAB PO (02:13)
[2018-06-12 06:55] LABS: ANION GAP 5 (5-13); BLOOD UREA NITROGEN 20 mg/dl (7-20); CALCIUM 9.1 mg/dl (8.4-10.2); CARBON DIOXIDE 32 mmol/L (21-31); CHLORIDE 103 mmol/L (97-110); CREATININE 1.51 mg/dl (0.61-1.24); Estimated GFR 50 mL/min (>60); GLUCOSE 104 mg/dl (70-220); MAGNESIUM 1.8 mg/dl (1.7-2.5); PHOSPHORUS 3.7 mg/dl (2.5-4.9); POTASSIUM 4.3 mmol/L (3.5-5.1); SODIUM 140 mmol/L (135-144)
[2018-06-12] MEDS: ACETAMINOPHEN 325 MG TAB PO (07:49)
[2018-06-12] MEDS: INSULIN ASPART [NOVOLOG] 3 ML PEN SC ×7 (07:54→20:38)
[2018-06-12] MEDS: CEFEPIME 1GM/50 ML (PMX) 50 ML IVPB ×2 (08:23→20:40)
[2018-06-12] MEDS: AMLODIPINE 2.5 MG TAB PO (08:23)
[2018-06-12] MEDS: SODIUM HYPOCHLORITE (1/40) 1 APPLIC BTL IRR (08:23)
[2018-06-12] MEDS: DAPTOMYCIN 500 MG in SOD CHLORIDE 0.9% 100 ML IVPB (15:40)
[2018-06-12] MEDS: INSULIN GLARGINE [LANTus] (100 UNITS/ML) SYG SC (20:40)
[2018-06-13 05:50] LABS: ANION GAP 4 (5-13); BLOOD UREA NITROGEN 18 mg/dl (7-20); CARBON DIOXIDE 33 mmol/L (21-31); CHLORIDE 101 mmol/L (97-110); CREATININE 1.51 mg/dl (0.61-1.24); Estimated GFR 50 mL/min (>60); GLUCOSE 109 mg/dl (70-220); MAGNESIUM 1.7 mg/dl (1.7-2.5); PHOSPHORUS 4.2 mg/dl (2.5-4.9); POTASSIUM 4.7 mmol/L (3.5-5.1); SODIUM 138 mmol/L (135-144)
[2018-06-13] MEDS: INSULIN ASPART [NOVOLOG] 3 ML PEN SC ×7 (08:00→20:16)
[2018-06-13] MEDS: CEFEPIME 1GM/50 ML (PMX) 50 ML IVPB ×2 (08:26→18:10)
[2018-06-13] MEDS: SODIUM HYPOCHLORITE (1/40) 1 APPLIC BTL IRR ×2 (08:26→11:52)
[2018-06-13] MEDS: ACETAMINOPHEN 325 MG TAB PO ×2 (08:28→16:31)
[2018-06-13] MEDS: AMLODIPINE 2.5 MG TAB PO (08:28)
[2018-06-13] MEDS: DAPTOMYCIN 500 MG in SOD CHLORIDE 0.9% 100 ML IVPB (16:26)
[2018-06-13] MEDS: hydrALAzine 20 MG INJ IV (20:10)
[2018-06-13] MEDS: INSULIN GLARGINE [LANTus] (100 UNITS/ML) SYG SC (20:19)
== END 2018-06-13 21:10 | disposition home health service (06) | DRG 854 ==
LOC: E/R 14:17 → PP2 16:15
PROVIDERS: Internal Medicine
PROC: 0JBR0ZZ Excision of Left Foot Subcutaneous Tissue and Fascia, Open Approach (ICD-10-PCS; principal; 2018-06-06)
DX: A41.9 Sepsis, unspecified organism (principal); N17.9 Acute kidney failure, unspecified; M86.672 Other chronic osteomyelitis, left ankle and foot; E11.21 Type 2 diabetes mellitus with diabetic nephropathy; E11.621 Type 2 diabetes mellitus with foot ulcer; E11.22 Type 2 diabetes mellitus with diabetic chronic kidney disease; L97.521 Non-pressure chronic ulcer of other part of left foot limited to breakdown of skin; I12.9 Hypertensive chronic kidney disease with stage 1 through stage 4 chronic kidney disease, or unspecified chronic kidney disease; N18.9 Chronic kidney disease, unspecified; D63.8 Anemia in other chronic diseases classified elsewhere; J20.9 Acute bronchitis, unspecified; E78.5 Hyperlipidemia, unspecified; R11.2 Nausea with vomiting, unspecified; R65.20 Severe sepsis without septic shock; Z79.4 Long term (current) use of insulin; Z79.84 Long term (current) use of oral hypoglycemic drugs
CPT/HCPCS: 36415; 36430; 70553; 71045; 73110-LT; 73110-RT; 73130-50; 73130-LT; 73130-RT; 73630-LT; 73718; 76775; 80048; 80202; 81001; 81003; 82043; 82270; 82550; 82570; 82728; 82962; 83036; 83540; 83605; 83735; 84100; 84155; 84156; 84165; 84166; 84300; 84484; 84560; 85025; 85610; 85651; 85730; 86140; 86320; 86325; 86644; 86850; 86900; 86901; 86920; 87040; 87045; 87070; 87081; 87086; 87400; 93005; 96374; 96375; 99291-25